=== PATIENT | male | born 1970 | race Two or more races ===

== ENCOUNTER 2021-06-21 09:02 | Emergency (ER) | payer MEDICAID, OTHER ==
[~2021-06-21] VITALS: Ht 182.9 cm; Wt 113.4 kg
[2021-06-21] MEDS ORDERED: LIDOCAINE 1% HCL (LOCAL ANESTH.) INJ 20ML MDV ONE (10:27)
[2021-06-21 10:30] VITALS: BP 132/81
[2021-06-21] MEDS ORDERED: cefTRIAXone SOD 1,000 MG VL IM ONE (10:30)
== END 2021-06-21 10:33 | disposition home or self-care (01) ==
LOC: ER 09:02
DX: U07.1 COVID-19 (principal); J03.90 Acute tonsillitis, unspecified; J20.9 Acute bronchitis, unspecified; I10 Essential (primary) hypertension; F17.210 Nicotine dependence, cigarettes, uncomplicated; Z86.73 Personal history of transient ischemic attack (TIA), and cerebral infarction without residual deficits
CPT/HCPCS: 36415; 71045; 87426; 93005; 96372; 99285; J0696; J2001

== ENCOUNTER 2021-07-01 19:19 | Emergency (ER) | payer MEDICAID ==
[~2021-07-01] VITALS: Ht 182.9 cm; Wt 113.4 kg
[2021-07-01 19:27] VITALS: BP 150/81
[2021-07-02] MEDS ORDERED: AMOX-277 PO (11:03)
[2021-07-02] MEDS ORDERED: ACET-1158 PO (11:07)
[2021-07-02] MEDS ORDERED: PRED20TA2 PO (11:09)
== END 2021-07-02 01:18 | disposition left against medical advice (07) ==
LOC: ER 19:22
DX: U07.1 COVID-19 (principal); Z53.21 Procedure and treatment not carried out due to patient leaving prior to being seen by health care provider

== ENCOUNTER 2021-07-02 08:54 | Emergency (ER) | payer MEDICAID ==
[~2021-07-02] VITALS: Ht 182.9 cm; Wt 113.4 kg
[2021-07-02 10:28] VITALS: BP 144/80
[2021-07-02] MEDS ORDERED: AMOX-277 PO (11:03)
[2021-07-02] MEDS ORDERED: ACET-1158 PO (11:07)
[2021-07-02] MEDS ORDERED: PRED20TA2 PO (11:09)
== END 2021-07-02 11:36 | disposition home or self-care (01) ==
LOC: ER 08:54
DX: J06.9 Acute upper respiratory infection, unspecified (principal); F17.210 Nicotine dependence, cigarettes, uncomplicated; F12.10 Cannabis abuse, uncomplicated; I10 Essential (primary) hypertension; Z86.73 Personal history of transient ischemic attack (TIA), and cerebral infarction without residual deficits; Z20.822 Contact with and (suspected) exposure to COVID-19
CPT/HCPCS: 36415; 87426